=== PATIENT | female | born 1955 | race Caucasian/White ===

== ENCOUNTER → 2016-07-29 | Outpatient (CLI) | payer BC ==
[~2016-07-29] MED LIST: CYCL10TA50; ESTR1.743; FOLI-17; LEVO25TA2 PO; METH2.5T25 PO; OXYC-302 PO; PRED20TA PO; PROG100C2; RANI150T8 PO
== END | disposition home or self-care (01) ==
LOC: CFH 08:23
PROVIDERS: ATTEND Obstetrics & Gynecology
DX: Z12.31 Encounter for screening mammogram for malignant neoplasm of breast (principal)
CPT/HCPCS: G0202

== ENCOUNTER → 2017-03-17 | Outpatient (CLI) | payer OTHER | LOC: CFH 09:39 | PROVIDERS: ATTEND Family Medicine | DX: Z13.820 Encounter for screening for osteoporosis (principal); M81.0 Age-related osteoporosis without current pathological fracture; Z78.0 Asymptomatic menopausal state | CPT/HCPCS: 77080 ==

== ENCOUNTER → 2017-12-22 | Outpatient (CLI) | payer OTHER ==
[~2017-12-22] MED LIST changes: +RANI150T23 PO; -RANI150T8 PO
== END | disposition home or self-care (01) ==
LOC: CFH 08:48
PROVIDERS: ATTEND Family Medicine
DX: Z12.31 Encounter for screening mammogram for malignant neoplasm of breast (principal)
CPT/HCPCS: 77063; 77067

== ENCOUNTER 2018-05-14 10:18 | Emergency (ER) | payer OTHER ==
[~2018-05-14] VITALS: Ht 170.2 cm; Wt 76.2 kg
[2018-05-14] MEDS ORDERED: CELE200C PO (10:56)
--- NOTE | 2018-05-14 10:58 | NUR ---
pt to ed for increased swelling today after knee surgery on . pt states worse today. incision covered, cdi. connected to monitors. vss. awaiting md assessment at this time.
--- NOTE | 2018-05-14 11:11 | NUR ---
md and pa assessment complete. awaiting orders.
--- NOTE | 2018-05-14 11:20 | NUR ---
us at bedside
[2018-05-14 12:04] VITALS: BP 119/71
--- NOTE | 2018-05-14 12:05 | NUR ---
md to bedside to updat on poc. pt resting in room. vss. no needs at this time. awaiting dispo.
== END 2018-05-14 12:32 | disposition home or self-care (01) ==
LOC: ED 12:15
DX: G89.11 Acute pain due to trauma (principal); M25.561 Pain in right knee; K21.9 Gastro-esophageal reflux disease without esophagitis; X58.XXXA Exposure to other specified factors, initial encounter; Y93.89 Activity, other specified; Y92.009 Unspecified place in unspecified non-institutional (private) residence as the place of occurrence of the external cause; Y99.8 Other external cause status
CPT/HCPCS: 99284